=== PATIENT | female | born 1950 | race Caucasian/White ===

== ENCOUNTER → 2016-11-21 | Outpatient (CLI) | payer OTHER, BC ==
--- NOTE | 2016-11-21 15:30 | MA ---
Diagnostic Digital Mammogram With iCAD Analysis Reason for Examination: Evaluate palpable area in the upper central right breast. History: The patient has had bilateral breast augmentation. In 2011 the right breast implant was repl aced. Breast parenchymal density: Type C; Heterogeneously dense. Technique: Four views of each breast are obtained including CC and oblique lateral Twila (implant di splaced) and non-Twila (implant not displaced) views. A marker is placed in the palpable region and implant displaced spot compression views in the craniocaudal and oblique projections are performed an d there is also an implant displaced true lateral view of the right breast obtained. Images were revi ewed using the iCAD computer aided detection system. Comparison: Mammographic studies January 2015 and August 2013, as well as breast ultrasound study [facility] 2014. Findings: Breast implants are in place bilaterally. There is lobulated deformity of the right breast implant and there are scattered areas of increased density presumably reflecting silicone leakage. Th e palpable area appears to most likely correspond to a focal area of silicone measuring 3.7 x 1.4 cm. iCAD is reviewed.No suspicious areas are identified. There has been no significant change in the ana earance of either breast. Breast implants diminish the sensitivity of mammography. Impression: Palpable area requires further evaluation, BI-RADS 0. Recommendation: Targeted right breast ultrasound which will be subsequently performed today. A verbal report was given to the patient. [facility] will send a result letter to the patient.
--- NOTE | 2016-11-21 18:12 | US ---
Right Breast Ultrasound History: Evaluate palpable lump. Technique: Longitudinal and transverse images were obtained utilizing a 15-MHz transducer. Color Do ppler evaluation is employed for assessment of vascularity. The examination is interpreted in conjun ction with diagnostic mammography performed earlier today. Findings: On physical examination, the palpable area can be localized. Sonographic interrogation de monstrates an echogenic densely shadowing nodular mass, which corresponds to an area of free silicone related to a previously removed right breast implant. This would correlate well with the findings o n diagnostic mammography from earlier today. No suspicious solid parenchymal abnormality is identifi ed. Impression: Benign findings when considering mammographic and sonographic assessment, BI-RADS 2. Recommendation: Resume routine mammographic screening in one year as long as physical examination is negative. Findings and follow-up recommendations were reviewed with the patient in detail. [facility] will send a result letter to the patient.
== END ==
LOC: BMCIMAGING 13:15
PROVIDERS: ATTEND Internal Medicine
DX: N63 Unspecified lump in breast (principal)
CPT/HCPCS: 76641; G0204

== ENCOUNTER → 2017-11-20 | Outpatient (CLI) | payer OTHER, BC | LOC: BMCIMAGING 09:36 | PROVIDERS: ATTEND Internal Medicine | DX: Z12.31 Encounter for screening mammogram for malignant neoplasm of breast (principal) ==

== ENCOUNTER → 2017-12-26 | Outpatient (CLI) | payer OTHER, BC | LOC: BMCIMAGING 13:10 | PROVIDERS: ATTEND Internal Medicine | DX: R91.1 Solitary pulmonary nodule (principal) ==

== ENCOUNTER → 2018-01-09 | Outpatient (CLI) | payer OTHER, BC | LOC: FIMAGING 14:53 | PROVIDERS: ATTEND Internal Medicine | DX: T85.49XA Other mechanical complication of breast prosthesis and implant, initial encounter (principal); R05 Cough ==

== ENCOUNTER → 2019-04-01 | Outpatient (CLI) | payer OTHER, BC | LOC: BMCIMAGING 10:48 | PROVIDERS: ATTEND Physical Medicine & Rehabilitation | DX: R92.8 Other abnormal and inconclusive findings on diagnostic imaging of breast (principal); Z98.82 Breast implant status; N60.02 Solitary cyst of left breast ==